=== PATIENT | female | born 1950 | race Caucasian/White ===

== ENCOUNTER 2020-11-18 05:59 | Day surgery (SDC) | payer MEDICARE, BC ==
[~2020-11-18 05:59] MED LIST: Lactated Ringers 1,000 ML IV SCH; Lidocaine 1%/Sod Bicarbonate in NS 8.4% 1 ML Syringe IDERM PRN; Sodium Chloride 0.9% 10 ML Syringe FLUSH PRN
[2020-11-18] MEDS ORDERED: Lidocaine 1% 30 ML SDV ONE (06:19)
[2020-11-18] MEDS ORDERED: Bupivacaine 0.25% 10 ML SDV ONE (06:19)
[2020-11-18] MEDS ORDERED: Propofol 200 MG/20 ML SDV ONE (07:08)
[2020-11-18] MEDS ORDERED: fentaNYL 100 MCG/2 ML SDV ONE (07:08)
[2020-11-18] MEDS ORDERED: Lidocaine 1% 4 ML ONE (07:14)
--- NOTE | 2020-11-18 07:47 | PCM48HPAN ---
Post Anesthesia Note - EVALUATION WITHIN 48HRS OF ANESTHETIC Vital Signs in Normal Range: Yes Patient Participated in Evaluation: Yes Respiratory Function Stable: Yes Airway Patent: Yes Cardiovascular Function Stable: Yes Hydration Status Stable: Yes Pain Control Satisfactory: Yes Nausea and Vomiting Control Satisfactory: Yes Mental Status Recovered: Yes Vital Signs: Last Vital Signs Temp 36.2 C 11/18/20 06:00 Pulse 82 11/18/20 06:00 Resp 16 11/18/20 06:00 BP 115/71 11/18/20 06:00 Pulse Ox 95 11/18/20 06:00 - COMMENTS/OBSERVATIONS Free Text/Narrative:: no anesthesia complications noted
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
--- NOTE | 2020-11-29 17:47 | PCM.OPNOTE ---
- General Post-Op/Procedure Note Date of Surgery/Procedure: 11/18/20 Operative Procedure(s): left carpal tunnel release Pre Op Diagnosis: left median nerve compression neuropathy Post-Op Diagnosis: Same Anesthesia Technique: Local, MAC Primary Surgeon: David Jacques Anesthesia Provider: Jesse Schumacher [employer] Post Order Clerk: Margie Arredondo EBL in mLs: 5 Complications: None Condition: Good
--- NOTE | 2020-11-29 18:10 | OR ---
DATE OF OPERATION: 11/18/2020 SURGEON: David Jacques MD OPERATION PERFORMED: Left carpal tunnel release. PREOPERATIVE DIAGNOSIS: Left median nerve compression neuropathy. POSTOPERATIVE DIAGNOSIS: Left median nerve compression neuropathy. ANESTHESIA: Local MAC. ANESTHESIA PROVIDER: Jesse Schumacher CRNA CENTRAL OFFICE MECHANIC: Margie Arredondo PA-C ESTIMATED BLOOD LOSS: Less than 5 mL. COMPLICATIONS: None. CONDITION: Stable. DESCRIPTION OF PROCEDURE: The patient was identified in the preop holding area. Proper site was marked and identified by the surgeon. The patient was taken back to the operating theater where after adequate anesthesia, the patient's left upper extremity was sterilely prepped and draped in the usual sterile fashion. OR time-out was performed. The patient did not receive antibiotics and it is not indicated for soft tissue hand procedure. At this time, the left upper extremity was exsanguinated and an Esmarch was used as a tourniquet on the forearm. At this time, using 1% lidocaine without epinephrine and 0.25% Marcaine without epinephrine, the palmar cutaneous branch of the median nerve was anesthetized and then the incisional site was anesthetized using Gomez cardinal line and ulnar border of the fourth digit as reference. Once this had set up, an incision was made. Blunt dissection was taken down to the palmar cutaneous fascia. Palmar cutaneous fascia was incised with a [place] blade. At this time, the transverse carpal ligament was identified. A small rent was made in the transverse carpal ligament with a [place] blade under direct visualization. Resection of the transverse carpal ligament was done distally using tenotomy scissors making sure to stop short of the palmar arch. At this time, attention was turned proximally after it was found to be adequately released. Using the tenotomy scissors keeping the tips ulnar to protect the palmar cutaneous branch of the median nerve, the superficial forearm fascia as well as the transverse carpal ligament were resected proximally. It was found to be adequate release both proximally and distally. At this time, adequate saline was irrigated through the wound. 4-0 nylon sutures were used closure of the skin. The patient was placed in a sterile soft dressing and sent to PACU in stable condition. MMODAL /[id number]
== END 2020-11-18 08:20 | disposition home or self-care (01) ==
LOC: JD.SDS 05:59
PROVIDERS: ATTEND Orthopaedic Surgery
DX: G56.12 Other lesions of median nerve, left upper limb (principal); E78.2 Mixed hyperlipidemia; Z79.899 Other long term (current) drug therapy; Z98.890 Other specified postprocedural states
CPT/HCPCS: 64721; 87641; J2001; J2704; J3010; J3490; J7120; 01810

== ENCOUNTER 2025-08-21 14:16 | Day surgery (SDC) | payer BC, MEDICARE ==
[2025-08-21] MEDS: Tetracaine HCl/PF 0.5% 4 ML Bottle EYEBOTH SCH (07:44)
[2025-08-21] MEDS: Polymyxin B/Trimethoprim 10 ML Bottle EYERT SCH (07:45)
[2025-08-21] MEDS: Pilocarpine 4% Ophth Soln 15 ML Bot EYERT SCH (07:45)
[2025-08-21] MEDS: Cefuroxime 10 MG/ML SYRINGE EYERT SCH (07:45)
[2025-08-21] MEDS: Lidocaine 1% PF 2 ML SDV INJECT SCH (07:45)
[2025-08-21] MEDS: Tropicamide 1% Ophth Soln 3 ML Bottle EYERT SCH (15:00)
== END 2025-08-21 17:10 | disposition home or self-care (01) ==
LOC: JD.SDS 14:16
PROVIDERS: ATTEND Ophthalmology
DX: H25.813 Combined forms of age-related cataract, bilateral (principal); H35.3131 Nonexudative age-related macular degeneration, bilateral, early dry stage; H35.363 Drusen (degenerative) of macula, bilateral; H35.372 Puckering of macula, left eye; H16.223 Keratoconjunctivitis sicca, not specified as Sjogren's, bilateral; H16.103 Unspecified superficial keratitis, bilateral; H02.831 Dermatochalasis of right upper eyelid; H02.834 Dermatochalasis of left upper eyelid; Z79.899 Other long term (current) drug therapy
CPT/HCPCS: A9270-GY; J0697; J3490

== ENCOUNTER 2025-09-18 11:15 | Day surgery (SDC) | payer BC, MEDICARE ==
[2025-09-18] MEDS: Polymyxin B/Trimethoprim 10 ML Bottle EYELF SCH (11:00)
[2025-09-18] MEDS: Tropicamide 1% Ophth Soln 3 ML Bottle EYELF SCH (11:09)
[~2025-09-18 11:15] MED LIST changes: -Lactated Ringers 1,000 ML IV SCH; -Lidocaine 1%/Sod Bicarbonate in NS 8.4% 1 ML Syringe IDERM PRN; +Pilocarpine 4% Ophth Soln 15 ML Bot EYELF SCH; -Sodium Chloride 0.9% 10 ML Syringe FLUSH PRN
[2025-09-18] MEDS: Tetracaine HCl/PF 0.5% 4 ML Bottle EYEBOTH SCH (12:22)
[2025-09-18] MEDS: Lidocaine 1% PF 2 ML SDV INJECT SCH (12:39)
[2025-09-18] MEDS: Cefuroxime 10 MG/ML SYRINGE EYELF SCH (12:59)
== END 2025-09-18 13:10 | disposition home or self-care (01) ==
LOC: JD.SDS 11:15
PROVIDERS: ATTEND Ophthalmology
DX: H26.9 Unspecified cataract (principal); H18.231 Secondary corneal edema, right eye; H52.31 Anisometropia; Z96.1 Presence of intraocular lens; Z87.891 Personal history of nicotine dependence; Z79.899 Other long term (current) drug therapy
CPT/HCPCS: 66984; A9270; J0697; J3490